=== PATIENT | female | born 1995 | race Two or more races ===

== ENCOUNTER 2018-05-12 03:53 | Emergency (ER) | payer BC ==
[~2018-05-12] VITALS: Ht 175.3 cm; Wt 56.1 kg
[2018-05-12 03:56] VITALS: BP 124/77
== END 2018-05-12 05:35 | disposition home or self-care (01) ==
LOC: ED 05:34
DX: S93.622A Sprain of tarsometatarsal ligament of left foot, initial encounter (principal); X50.1XXA Overexertion from prolonged static or awkward postures, initial encounter; Y93.89 Activity, other specified; Y92.098 Other place in other non-institutional residence as the place of occurrence of the external cause; Y99.8 Other external cause status
CPT/HCPCS: 99284